=== PATIENT | male | born 1970 | race Caucasian/White ===

== ENCOUNTER 2017-02-19 04:53 | Emergency (ER) | payer OTHER ==
[2017-02-19 05:00] VITALS: BP 132/82; PULSE 55; RESP 15; TEMP 97.5; O2SAT 97
[2017-02-19] MEDS ORDERED: FLUORESCEIN SODIUM 1 MG STRIP OP ONE ×2 (05:04→05:25)
[2017-02-19] MEDS ORDERED: PROPARACAINE 0.5% 15 ML OPHT DROP ONE (05:04)
[2017-02-19] MEDS ORDERED: PROPARACAINE 0.5% 15 ML OPHT DROP LEFTEYE ONE (05:25)
[2017-02-19] MEDS ORDERED: CIPROFLOXACIN 0.3% DROPS PREPACK OPHT.BTL TAKEHOME ONE (05:29)
[2017-02-19] MEDS ORDERED: ACETAMINOPHEN 500 MG TAB PO ONE (05:30)
[2017-02-19] MEDS ORDERED: IBUPROFEN 200 MG TAB PO ONE (05:30)
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
== END 2017-02-19 05:47 | disposition home or self-care (01) ==
LOC: MERGE 04:53
DX: S05.02XA Injury of conjunctiva and corneal abrasion without foreign body, left eye, initial encounter (principal); X58.XXXA Exposure to other specified factors, initial encounter